=== PATIENT | female | born 1995 | race Caucasian/White ===

== ENCOUNTER 2022-10-28 13:34 | Emergency (ER) | payer OTHER, BC ==
[2022-10-28] MEDS ORDERED: Sodium Chloride 0.9% 10 ML Syringe FLUSH PRN (13:46)
[2022-10-28 14:05] LABS: BASOPHILS PERCENT AUTO 0.3 % (0.0-1.0); EOSINOPHILS PERCENT AUTO 3.3 % (1.0-3.0); HEMATOCRIT 38.5 % (37.0-47.0); LYMPHOCYTES PERCENT AUTO 33.5 % (20.5-50.1); MEAN CORPUSCULAR HGB CONC 33.8 g/dL (33.0-35.0); MEAN CORPUSCULAR VOLUME 85.9 fL (80-100); MONOCYTES PERCENT AUTO 8.8 % (2-8); NEUTROPHILS PERCENT AUTO 54.1 % (42.2-75.2); PLATELET COUNT,PLT 310 10^3/uL (150-450); RED BLOOD CELL COUNT 4.48 10^6/uL (4.2-5.4); WHITE BLOOD CELL COUNT,WBC 8.8 10^3/uL (5.0-10.0)
[2022-10-28 14:19] LABS: PROTHROMBIN TIME 10.2 SEC (9.0-12.0)
[2022-10-28 14:26] LABS: A/G RATIO 1.2; ALANINE AMINOTRANSFERASE,ALT 19 U/L (14-59); ALBUMIN 3.8 g/dL (3.4-5.0); ALKALINE PHOSPHATASE 54 U/L (46-116); ANION GAP 12.8 mEq/L (7-13); ASPARTATE AMNIOTRANSFERASE,AST 9 U/L (15-37); BILIRUBIN TOTAL 0.6 mg/dL (0.2-1.0); BLOOD UREA NITROGEN,BUN 11 mg/dL (7-18); BUN/CREATININE RATIO 13.9 (No establ ref range); CALCIUM 8.6 mg/dL (8.5-10.1); CARBON DIOXIDE,CO2 27 mmol/L (21-32); CHLORIDE,CL 104 mmol/L (98-107); CREATININE 0.79 mg/dL (0.55-1.02); GLUCOSE RANDOM 87 mg/dL (70-99); MAGNESIUM 1.7 mg/dL (1.8-2.4); POTASSIUM,K 3.8 mmol/L (3.5-5.1); SODIUM,NA 140 mmol/L (136-145)
[2022-10-28 14:27] LABS: LACTIC ACID 1.4 mmol/L (0.4-2.0)
[2022-10-28 14:30] LABS: ESTIMATED GFR 106 mL/min (>=60)
[2022-10-28 14:50] LABS: APPEARANCE,URINE SLIGHTLY CLOUDY (CLEAR); BILIRUBIN,URINE NEGATIVE (NEGATIVE); COLOR,URINE YELLOW (YELLOW); GLUCOSE,URINE NEGATIVE (NEGATIVE); KETONES,URINE NEGATIVE (NEGATIVE); LEUKOCYTE ESTERASE,URINE SMALL (NEGATIVE); NITRITE,URINE NEGATIVE (NEGATIVE); OCCULT BLOOD,URINE NEGATIVE (NEGATIVE); PH,URINE 6.5 (5.0-9.0); PROTEIN,URINE NEGATIVE (NEGATIVE); UROBILINOGEN,URINE 0.2 mg/dL (0.2-1.0)
[2022-10-28 15:09] LABS: EPITHELIAL CELLS,URINE MANY /HPF (NOT SEEN); MUCUS,URINE FEW /LPF (NOT SEEN); RBC,URINE 0-5 /HPF (0-5)
[2022-10-28 15:10] LABS: BACTERIA,URINE FEW /HPF (0-FEW/HPF)
== END 2022-10-28 15:27 | disposition home or self-care (01) ==
LOC: DL.ED 13:34
DX: N30.00 Acute cystitis without hematuria (principal)
CPT/HCPCS: 36415; 80053; 81001; 81025; 83605; 83735; 84484; 85025; 85610; 86140; 87086; 93005; 93010; 99284; 99285; J3490

== ENCOUNTER 2022-12-08 16:44 | Emergency (ER) | payer BC, OTHER ==
[2022-12-08 17:20] LABS: BASOPHILS PERCENT AUTO 0.5 % (0.0-1.0); EOSINOPHILS PERCENT AUTO 2.5 % (1.0-3.0); HEMATOCRIT 36.4 % (37.0-47.0); HEMOGLOBIN 12.8 g/dL (12.0-16.0); LYMPHOCYTES PERCENT AUTO 36.4 % (20.5-50.1); MEAN CORPUSCULAR HEMOGLOBIN 29.7 pg (27.0-34.0); MEAN CORPUSCULAR HGB CONC 35.2 g/dL (33.0-35.0); MEAN CORPUSCULAR VOLUME 84.5 fL (80-100); MONOCYTES PERCENT AUTO 10.3 % (2-8); NEUTROPHILS PERCENT AUTO 50.3 % (42.2-75.2); PLATELET COUNT,PLT 257 10^3/uL (150-450); RED BLOOD CELL COUNT 4.31 10^6/uL (4.2-5.4); WHITE BLOOD CELL COUNT,WBC 7.5 10^3/uL (5.0-10.0)
[2022-12-08 17:40] LABS: ALANINE AMINOTRANSFERASE,ALT 15 U/L (14-59); ALBUMIN 3.5 g/dL (3.4-5.0); ALKALINE PHOSPHATASE 55 U/L (46-116); ANION GAP 11.1 mEq/L (7-13); ASPARTATE AMNIOTRANSFERASE,AST 8 U/L (15-37); BILIRUBIN TOTAL 0.8 mg/dL (0.2-1.0); BLOOD UREA NITROGEN,BUN 10 mg/dL (7-18); BUN/CREATININE RATIO 11.8 (No establ ref range); CALCIUM 8.2 mg/dL (8.5-10.1); CARBON DIOXIDE,CO2 27 mmol/L (21-32); CHLORIDE,CL 103 mmol/L (98-107); CREATININE 0.85 mg/dL (0.55-1.02); EST CRCL DRUG DOSING (CG) 102.06 mL/min; GLUCOSE RANDOM 88 mg/dL (70-99); MAGNESIUM 1.7 mg/dL (1.8-2.4); POTASSIUM,K 4.1 mmol/L (3.5-5.1); PROTEIN TOTAL,TP 6.9 g/dL (6.4-8.2); SODIUM,NA 137 mmol/L (136-145)
[2022-12-08 17:43] LABS: HCG QUALITATIVE,SERUM NEGATIVE (NEGATIVE)
[2022-12-08 17:46] LABS: ESTIMATED GFR 97 mL/min (>=60)
== END 2022-12-08 18:26 | disposition home or self-care (01) ==
LOC: DL.ED 16:44
DX: G44.309 Post-traumatic headache, unspecified, not intractable (principal)
CPT/HCPCS: 36415; 71046; 80053; 83735; 84703; 85025; 99284

== ENCOUNTER 2022-12-21 21:34 | Emergency (ER) | payer BC, OTHER ==
[2022-12-21 22:01] LABS: BASOPHILS PERCENT AUTO 0.6 % (0.0-1.0); EOSINOPHILS PERCENT AUTO 3.2 % (1.0-3.0); HEMATOCRIT 37.8 % (37.0-47.0); LYMPHOCYTES PERCENT AUTO 39.8 % (20.5-50.1); MEAN CORPUSCULAR HGB CONC 34.4 g/dL (33.0-35.0); MEAN CORPUSCULAR VOLUME 84.4 fL (80-100); MONOCYTES PERCENT AUTO 9.2 % (2-8); NEUTROPHILS PERCENT AUTO 47.2 % (42.2-75.2); PLATELET COUNT,PLT 327 10^3/uL (150-450); RED BLOOD CELL COUNT 4.48 10^6/uL (4.2-5.4); WHITE BLOOD CELL COUNT,WBC 8.8 10^3/uL (5.0-10.0)
[2022-12-21 22:15] LABS: PROTHROMBIN TIME 10.3 SEC (9.0-12.0)
[2022-12-21 22:21] LABS: ALBUMIN 3.6 g/dL (3.4-5.0); ANION GAP 9.5 mEq/L (7-13); BILIRUBIN TOTAL 0.6 mg/dL (0.2-1.0); BUN/CREATININE RATIO 17.1 (No establ ref range); CALCIUM 8.5 mg/dL (8.5-10.1); CREATININE 0.82 mg/dL (0.55-1.02); EST CRCL DRUG DOSING (CG) 101.99 mL/min; POTASSIUM,K 3.5 mmol/L (3.5-5.1); PROTEIN TOTAL,TP 7.1 g/dL (6.4-8.2)
[2022-12-21] MEDS ORDERED: Orphenadrine 60 MG/2 ML Inj IM ONE (22:46)
[2022-12-21] MEDS ORDERED: Acetaminophen 325 MG Tab PO ONE (22:46)
== END 2022-12-22 00:16 | disposition home or self-care (01) ==
LOC: DL.ED 21:34
DX: R07.89 Other chest pain (principal); M62.838 Other muscle spasm
CPT/HCPCS: 36415; 71045; 80053; 84484; 85025; 85379; 85610; 93005; 93010; 96372; 99284; 99285; A9270-GY; J2360